=== PATIENT | male | born 1970 | race Caucasian/White ===

== ENCOUNTER 2017-09-20 14:00 | Outpatient (RCR) | payer OTHER, MEDICAID, SELFPAY | END 2017-10-10 23:59 | LOC: NS 14:00 | PROVIDERS: Family Provider Internal Medicine; PCP Internal Medicine; Visit Provider Nurse Practitioner Family | DX: E66.9 Obesity, unspecified (principal); Z68.32 Body mass index [BMI] 32.0-32.9, adult; Z71.3 Dietary counseling and surveillance | CPT/HCPCS: 97803 ==

== ENCOUNTER → 2017-10-22 12:32 | Outpatient (CLI) | payer OTHER, MEDICAID, SELFPAY ==
[2017-10-22 13:04] VITALS: PULSE 101; PULSE 93; PULSE 94; PULSE 95; PULSE 96; PULSE 98; O2SAT 94; O2SAT 95; O2SAT 97
--- NOTE | 2017-10-23 07:30 | WT_ITS ---
PSN 6 Minute Walk Test - 6 Minute Walk Test 6 Minute Walk Test: 6 Minute Walk Test PSN:6-Minute Walk Test Start: 10/22/17 13: 04 Freq: Status: Active Protocol: [id number] Document 10/22/17 13:04 NESSA (Rec: 10/22/17 13:06 NESSA [id number]) 6 Minute Walk Test Date Performed 10/22/17 Time Performed 12:30 Height 5 ft 9 in Weight: 237 lb Weight in Pounds 237.[address]: Vero Loyd Assistive device used: None Pre-test Oxygen Delivery Method Room Air Pulse Ox (%) 95 Pulse Rate (60-100 beats/min) 101 H Dyspnea Aravind Scale (0-10) 1 Exertion Aravind Scale (6-20) 6 1st minute Oxygen Delivery Method Room Air Pulse Ox (%) 94 Pulse Rate (60-100 beats/min) 96 2nd minute Oxygen Delivery Method Room Air Pulse Ox (%) 95 Pulse Rate (60-100 beats/min) 98 3rd minute Oxygen Delivery Method Room Air Pulse Ox (%) 94 Pulse Rate (60-100 beats/min) 93 4th minute Oxygen Delivery Method Room Air Pulse Ox (%) 94 Pulse Rate (60-100 beats/min) 96 5th minute Oxygen Delivery Method Room Air Pulse Ox (%) 94 Pulse Rate (60-100 beats/min) 96 6th minute Oxygen Delivery Method Room Air Pulse Ox (%) 94 Pulse Rate (60-100 beats/min) 94 Dyspnea Aravind Scale (0-10) 3 Exertion Aravind Scale (6-20) 12 Post-test Oxygen Delivery Method Room Air Pulse Ox (%) 97 Pulse Rate (60-100 beats/min) 95 Full Laps Walked 16 Partial Lap, Number of Tiles Walked 20 Total Distance Walked (ft) 964 - Interpretation Interpretation: The patient ambulated 964 feet over the course of 6 minutes beginning on room air without assistive devices or breaks. Pretesting oxygen saturation was noted to be 95% on room air. With ambulation, the noelle oxygen saturation was 94%. There was no significant exertional oxygen desaturation. - Recommendations Recommendations: There is no indication for the use of supplemental oxygen at this time.
== END ==
PROVIDERS: Family Provider Internal Medicine; PCP Internal Medicine; Visit Provider Nurse Practitioner Acute Care
DX: R06.02 Shortness of breath (principal); G47.33 Obstructive sleep apnea (adult) (pediatric)
CPT/HCPCS: 94618

== ENCOUNTER 2017-10-24 16:21 | Outpatient (RCR) | payer OTHER, MEDICAID, SELFPAY ==
[2017-10-10 14:16] VITALS: BP 112/82; BMI 34.4
== END 2017-11-07 23:59 ==
LOC: NS 16:21
PROVIDERS: Family Provider Internal Medicine; PCP Internal Medicine; Visit Provider Nurse Practitioner Family
DX: E66.9 Obesity, unspecified (principal); Z68.32 Body mass index [BMI] 32.0-32.9, adult; Z71.3 Dietary counseling and surveillance
CPT/HCPCS: 97803

== ENCOUNTER → 2017-10-30 20:00 | Outpatient (CLI) | payer OTHER, MEDICAID, SELFPAY | PROVIDERS: Family Provider Internal Medicine; PCP Internal Medicine; Visit Provider Nurse Practitioner Acute Care | DX: G47.33 Obstructive sleep apnea (adult) (pediatric) (principal) | CPT/HCPCS: 95811 ==

== ENCOUNTER → 2017-11-09 08:07 | Outpatient (CLI) | payer OTHER, MEDICAID, SELFPAY ==
[2017-11-09 08:47] LABS: Absolute Lymphocyte Count 2.55 X10^3/ul (0.83-4.51); Absolute Neutrophil Count 2.1 X10^3/uL (2.0-7.7); Basophil# 0.05 X10^3/uL; Basophil% 0.9 % (0-1); Eosinophil# 0.19 X10^3/uL; Eosinophils% 3.5 % (0-5); Hematocrit 46.9 % (40-54); Hemoglobin 15.7 g/dl (13.0-16.5); Lymphocyte # 2.55 X10^3/ul (4.0); Lymphocyte % 46.9 % (19-41); Mean Corp Hgb Conc 33.5 g/gl (32-36); Mean Corpuscular Hgb 28.8 pg (27.0-32.0); Mean Corpuscular Volume 86.1 fL (80-94); Mean Platelet Vol. 10.2 fl (6.2-12.0); Monocyte% 9.2 % (0-10); Neutrophil # 2.14 X10^3/uL (2.7-7.7); Neutrophil % 39.3 % (47-70); Platelet Count 182 K/mm3 (150-450); RBC Distribution Width CV 13.8 % (11.6-14.6); RBC Distribution Width SD 42.7 fl (35.1-43.9); Red Blood Count 5.45 M/mm3 (4.6-6.2); White Blood Count 5.4 K/mm3 (4.4-11.0)
[2017-11-09 08:50] LABS: POSITIVE COUNT NO; POSITIVE DIFFERENTIAL NO; POSITIVE MORPHOLOGY NO
[2017-11-09 09:12] LABS: International Normalized Ratio 0.9; Prothrombin Time (Protime)PT. 12.5 SECONDS (11.7-14.9)
[2017-11-09 09:28] LABS: AST(SGOT) 21 U/L (15-37); Alanine Aminotransfer ALT/SGPT 30 U/L (16-61); Albumin, Serum 3.7 g/dL (3.2-5.0); Alkaline Phosphatase 83 U/L (45-117); Anion Gap 8 (5-15); BUN 13 mg/dL (7-18); BUN/Creat Ratio 12.3 RATIO (10-20); Bilirubin, Direct 0.08 mg/dL (0.00-0.30); Calcium,Total 8.5 mg/dL (8.5-10.1); Chloride 110 mmol/L (98-107); Cholesterol 152 mg/dL (200); Creatinine, Serum 1.06 mg/dL (0.70-1.30); EST Glomerular Filtration Rate 79 mL/min (>60); Est Glom Filt Rate - Afr Amer 96 mL/min (>60); Ferritin 31 ng/mL (26-388); GGTP 29 U/L (15-85); Globulin 3.9 g/dL (2.2-4.2); Glucose 110 mg/dL (74-106); High Density Lipoprotein 44 mg/dL; Iron 61 ug/dL (65-175); Iron Binding Capacity,Total 450 ug/dL (250-450); Potassium 4.3 mmol/L (3.5-5.1); Protein, Total 7.6 g/dL (6.4-8.2); Sodium Level 142 mmol/L (136-145); T4 Total, Thyroxin 9.9 ug/dL (4.5-12.1); Thyroid Stim Hormone (TSH) 1.69 uIU/mL (0.358-3.74); Triglycerides 126 mg/dL; Very Low Density Lipoprotein 25 mg/dL (5-40)
[2017-11-09 09:50] LABS: Vitamin B12 301 pg/mL (211-911)
[2017-11-12 14:20] LABS: ANTINUCLEAR ANTIBODIES DIRECT Positive (Negative); Anti-Mitochondrial AB <20.0 Units (0.0-20.0)
[2017-11-13 16:09] LABS: HEPATITIS B SURFACE AG Negative (Negative); Hepatitis A AB, Total Negative (Negative); Hepatitis B Core Ab Total Negative (Negative); Immunoglobulin A 130 mg/dL (90-386); PROEL- Albumin 3.6 g/dL (2.9-4.4); PROEL- Alpha-1 Globulin 0.3 g/dL (0.0-0.4); PROEL- Alpha-2 Globulin 0.8 g/dL (0.4-1.0); PROEL- Beta Globulin 1.1 g/dL (0.7-1.3); PROEL- Gamma Globulin 1.4 g/dL (0.4-1.8); PROEL- Globulin, Total 3.6 g/dL (2.2-3.9); PROEL- TOTAL PROTEIN 7.2 g/dL (6.0-8.5)
[2017-11-13 16:10] LABS: Ceruloplasmin 27.4 mg/dL (16.0-31.0); HCV Quant. RNA PCR 30 IU/mL (.)
[2017-11-13 16:48] LABS: AFP, Tumor Marker 4.2 ng/mL (0.0-8.3); Anti-Smooth Muscle ABS 29 Units (0-19); HCV log 10 1.477 (.); Hep B Surface Antibodies Non Reactive (.)
== END ==
PROVIDERS: Family Provider Internal Medicine; PCP Internal Medicine
DX: B18.2 Chronic viral hepatitis C (principal)
CPT/HCPCS: 36415; 80048; 80061; 80076; 82105; 82390; 82607; 82728; 82784; 82977; 83516; 83540; 83550; 84165; 84436; 84443; 84590; 85025; 85610; 85730; 86038; 86704; 86706; 86708; 87340; 87522; 87902

== ENCOUNTER → 2017-11-14 06:39 | Outpatient (CLI) | payer OTHER, MEDICAID, SELFPAY ==
--- NOTE | 2017-11-14 18:30 | STRESSREP ---
Stress Test Report Exercise myocardial perfusion stress test. 47-year-old man with a history of known coronary artery disease. Stress protocol: Resting EKG demonstrates normal sinus rhythm with a rate of 71 bpm normal intervals are noted. The patient exercised according to the regular Derek protocol duration of 7 minutes. The maximum heart rate attained was 148 bpm which was 86% of the maximum predicted heart rate. The maximum workload attained was 8.5 metabolic equivalents. At rest there were no ST or T-wave changes noted suggest ischemia. At peak exercise upsloping ST changes only were noted we did not meet the criteria for ischemia. Occasional premature ventricular complexes were noted. There was small inferior Q waves noted suggestive of a previous inferior infarct. Blood pressure is 140/100 with a peak blood pressure 180/78 mmHg. Myocardial perfusion protocol. 14.4 mCi of technetium 99m sestamibi was injected at rest. The patient exercised according to the Derek protocol for total duration of 7 minutes and at peak exercise 44.6 mCi of technetium 99m sestamibi was injected. Stress images were obtained. Stress and rest images were reconstructed and compared in the short axis vertical long and horizontal long axis. Gated images were also obtained. Perfusion SPECT analysis. Review of the stress images demonstrate normal cardiac perfusion noted in the septum as well as the mid anterior wall. There is a medium-sized defect noted in the inferior apical wall and the distal anterior wall. There is mildly reduced perfusion noted in the basal inferior wall. On the resting images there is near complete reversibility noted of the basal and mid inferior wall and mild improvement in the inferior apical and distal anterior apical wall. The above is suggestive of ischemia in the above noted territories. Gated SPECT analysis. The gated ejection fraction is noted to be 52%. Conclusion: Abnormal exercise myocardial perfusion stress test at a moderate workload. Mild to moderate basal to mid inferior ischemia. Mild inferior apical ischemia noted.
[2017-11-18 08:29] LABS: Vitamin A, Retinol 51 ug/dL (24-85)
== END ==
PROVIDERS: Family Provider Internal Medicine; PCP Internal Medicine; Visit Provider Internal Medicine Cardiovascular Disease
DX: I25.10 Atherosclerotic heart disease of native coronary artery without angina pectoris (principal); R07.9 Chest pain, unspecified; B18.2 Chronic viral hepatitis C; I25.2 Old myocardial infarction
CPT/HCPCS: 78452; 84590; 93017; A9500; A4216

== ENCOUNTER 2017-11-14 12:47 | Outpatient (RCR) | payer OTHER, MEDICAID, SELFPAY | END 2017-11-14 12:48 | LOC: NS 12:47 | PROVIDERS: Family Provider Internal Medicine; PCP Internal Medicine; Visit Provider Nurse Practitioner Family | DX: E66.9 Obesity, unspecified (principal); Z68.32 Body mass index [BMI] 32.0-32.9, adult; Z71.3 Dietary counseling and surveillance | CPT/HCPCS: 97803 ==

== ENCOUNTER → 2017-11-16 13:20 | Outpatient (CLI) | payer OTHER, MEDICAID, SELFPAY ==
--- NOTE | 2017-11-16 14:34 | PFTCOMP ---
COMPLETE PULMONARY FUNCTION TEST INTERPRETATION Brief HPI: Patient is a 47 year old male, currently under the care of Vero Loyd, who presents to [facility] for complete pulmonary function tests secondary to diagnosis of JEAN PIERRE. Respiratory therapist reports good effort and reproducible results. Interpretation: Forced expiration spirometry shows no large airways obstructive ventilatory defect with an FEV1 of 104 % predicted. There is no significant bronchodilator response by ATS criteria. Spirograms are of good quality and plateau normally. The respiratory flow volume loop shows a normal pattern. Lung volumes by body plethysmography show a total lung capacity at the lower limit of normal at 5.63 L, 85 % predicted. All other lung volumes are within normal limits. Diffusion capacity by carbon monoxide is normal at 96 % predicted. The airway resistance is normal. No previous pulmonary function tests were available for review. Impression: These pulmonary function tests are within normal limits. Lung volumes are at the lower limit of normal, likely secondary to body habitus.
== END ==
PROVIDERS: Family Provider Internal Medicine; PCP Internal Medicine; Visit Provider Nurse Practitioner Acute Care
DX: G47.33 Obstructive sleep apnea (adult) (pediatric) (principal); R06.02 Shortness of breath
CPT/HCPCS: 94060; 94726; 94729

== ENCOUNTER → 2017-11-21 11:14 | Outpatient (CLI) | payer OTHER, MEDICAID, SELFPAY ==
--- NOTE | 2017-11-21 11:15 | RAD_ITS ---
STUDY: X-RAY CHEST REASON FOR EXAM: Male, 47 years old. Dyspnea TECHNIQUE: Frontal and lateral views of the chest. COMPARISON: 05/22/2016 FINDINGS: The lungs are clear and expanded. There is no demonstrated pleural abnormality. Normal size heart. Normal mediastinum and melisa. Normal visualized pulmonary arteries. Normal visualized aortic arch and descending thoracic aorta. There are diffuse degenerative changes of the visualized thoracic spine. Normal visualized ribs, clavicles, and shoulders. Abdominal clips. RAD/Chest PA and Lateral IMPRESSION: No acute pulmonary findings. Electronically Signed: Ernie Khanna MD at 8:46 EDT Tel , Service support ,
== END ==
PROVIDERS: Family Provider Internal Medicine; PCP Internal Medicine; Visit Provider Internal Medicine Cardiovascular Disease
DX: R06.02 Shortness of breath (principal); R06.00 Dyspnea, unspecified; R94.39 Abnormal result of other cardiovascular function study
CPT/HCPCS: 71046

== ENCOUNTER → 2017-12-03 09:05 | Day surgery (SDC) | payer OTHER, MEDICAID, SELFPAY ==
[2017-11-30 14:26] VITALS: BMI 34.8
--- NOTE | 2017-12-03 11:08 | CL.D_ITS ---
Patient Name: LISSETH KEMP Study Date: 12/03/2017 Performing: Juan Luis Mcdonough MD Ht: 69 inches 175 cm : 1970 Wt: 236.2 lbs 107 kg Age: 47 Gender: male BSA: 2.21 PROCEDURE(S) PERFORMED [id number]/COR/LV CLINICAL PROFILE AND INDICATIONS INDICATIONS: 44-year-old man with a history of cardiomyopathy and previous LAD stent and abnormal stress test. Stress/Imaging Standard Exercise Stress Test: Yes Result: Positive Low Risk CAD Presentations: No Sxs, no angina. CONCLUSIONS No significant CAD RECOMMENDATIONS Medical therapy DESCRIPTION OF PROCEDURE The patient arrived to the procedure lab. The risks and benefits of the procedure as well as a full d escription of our services here and current unavailability of surgical backup were fully explained to the patient and/or their significant other prior to the catheterization. The Timeout was completed, verifying the correct patient and procedure. The patient's procedural site was prepped and draped in the usual fashion. Local anesthetic was given subcutaneously to right radial region with Lidocaine 2% . Using a modified Seldinger technique, arterial access was obtained via the right radial artery, a 6 Fr sheath was inserted. Left Coronary Artery selective angiography was performed in multiple views u sing a 5 Fr. 4.0 Sargent catheter. Right Coronary Artery selective angiography was then performed in mu ltiple views using a 5 Fr. 4.0 Sargent catheter. Left Ventriculography was performed in SCHAEFER projection using a 5 Fr. Pigtail catheter. LV to AO pullback pressures were then recorded.The arterial sheath wa s pulled and a TR Band was applied for hemostasis CORONARY ANGIOGRAPHY DOMINANCE: Right Dominant LEFT HEART ASSESSMENT Left Ventricular Ejection Fraction: by Echo 50 % Depressed Left Ventricular systolic function LEFT MAIN: Angiographically normal LEFT ANTERIOR DECENDING ARTERY: Previously placed stent is patent CIRCUMFLEX ARTERY: Angiographically normal RIGHT CORONARY ARTERY: Angiographically normal COMPLICATIONS No Complications PROCEDURE MEDICATIONS Fentanyl 50 mcg IV Versed 1 mg IV Versed 1 mg IV Oxygen: 2 L/min via nasal cannula Baby Aspirin (81mg) 1 Tabs PO @ 12/03/2017 09:25:36 Heparin diluted in 23cc Heparinized saline. Patient given 10cc IA of this solution. 12/03/2017 10:44: 01 Plavix 75 mg PO 12/03/2017 09:25:40 Verapamil 2.5mg, Ntg 100mcgs, 2000 units of Heparin diluted in 23cc Heparinized saline. Patient give n 10cc IA of this solution. 12/03/2017 10:44:01 SUMMARY OF HEMODYNAMIC DATA Time AIR REST ECG 09:45:18 AO 98/69 (81) SA 10:47:41 LV 108/-3, 1 10:53:25 LV 110/0, 3 10:53:33 LV 115/-6, 5 10:54:20 LVp 114/-7, 2 10:54:24 AOp 122/74 (94) 10:54:29 Signed By Juan Luis Mcdonough MD On 12/03/2017 11:08:02 Juan Luis Mcdonough MD
== END ==
PROVIDERS: Family Provider Internal Medicine; PCP Internal Medicine; Visit Provider Internal Medicine Cardiovascular Disease
DX: R94.39 Abnormal result of other cardiovascular function study (principal); Z95.5 Presence of coronary angioplasty implant and graft; I25.10 Atherosclerotic heart disease of native coronary artery without angina pectoris; F41.9 Anxiety disorder, unspecified; F32.9 Major depressive disorder, single episode, unspecified; Z79.899 Other long term (current) drug therapy; Z79.82 Long term (current) use of aspirin; G47.33 Obstructive sleep apnea (adult) (pediatric); I25.2 Old myocardial infarction; F15.10 Other stimulant abuse, uncomplicated; F11.10 Opioid abuse, uncomplicated; B18.2 Chronic viral hepatitis C; Z82.49 Family history of ischemic heart disease and other diseases of the circulatory system; Z87.891 Personal history of nicotine dependence; E78.00 Pure hypercholesterolemia, unspecified; I10 Essential (primary) hypertension
CPT/HCPCS: 93458; 99152; 99153; J3010; J7040; Q9967; C1769; C1894

== ENCOUNTER 2018-04-06 18:21 | Emergency (ER) | payer OTHER, MEDICAID, SELFPAY ==
[2018-04-06] VITALS (8 sets, daily range): BP systolic 118–167; BP diastolic 79–100; PULSE 88–126; RESP 15–18; TEMP 36.6; O2SAT 94–97; BMI 33.9
[2018-04-06] MEDS: MethylPREDNISolone 125 MG/2 ML Vial IV (18:35)
--- NOTE | 2018-04-06 18:39 | ED.RN ---
PT REPORTS THROAT FEELS BETTER AFTER SOLUMEDROL AND EPI PEN
[2018-04-06] MEDS: DiphenhydrAMINE 50 MG/ML Syringe 25 MG IV (18:52)
--- NOTE | 2018-04-06 22:15 | ED.VISSUMM ---
- ER Visit Summary Date of Service: 04/06/18 Chief Complaint: Bee sting History of Present Illness: The patient is a 48 M who states that he was stung multiple times by some Hymenoptera. He states that 12 years ago he had a severe anaphylactic reaction. He states that he is having difficulty breathing and swallowing. He states he is diffusely itching and is having hives. Physical Examination: Afebrile patient does show tachycardia Patient does have some mild oral pharyngeal swelling. He is tachycardic. He has a slight wheeze. He has diffuse hives on his body. Emergency Department Course and Treatment: Patient was given epinephrine Solu-Medrol and Pepcid and Benadryl. The patient was observed for 4 hours. He continues to do well. Going to give him an oral dose of prednisone here. He will continue Benadryl at home. Return if worsening or concerns Impression: 1. Acute anaphylactic reaction to hymenoptera envenomation This note was generated with [employer] dictation software. It may contain incorrect words, spelling, and punctuation that were not noted in review of the chart prior to signing ED Disposition - Plan for ED Patient: Disposition: Home or Assisted Living Chief Complaint: Allergic Reaction Instructions: ED Bite Sting Insect Gen Allergic React Prescriptions: Epinephrine [Epipen] 0.3 mg IJ PRN PRN #1 auto.injct PRN Reason: Anaphylaxis Prednisone [Deltasone] 60 mg PO DAILY #9 tab Referrals: Kane Galan MD [Primary Care Provider] - As Needed Additional Instructions: I would recommend Pepcid 20 mg twice a day for the next 3 days I would recommend Benadryl 25 mg every 8 hours for the next 3 days Return if worsening or concerns I provided you a prescription for an EpiPen which I would recommend. Please discussed with the pharmacist cost as well as potential options.
--- NOTE | 2018-04-06 22:20 | ED.DCSUM_ITS ---
- ER Visit Summary Date of Service: 04/06/18 Chief Complaint: Bee sting History of Present Illness: The patient is a 48 M who states that he was stung multiple times by some Hymenoptera. He states that 12 years ago he had a severe anaphylactic reaction. He states that he is having difficulty breathing and swallowing. He states he is diffusely itching and is having hives. Physical Examination: Afebrile patient does show tachycardia Patient does have some mild oral pharyngeal swelling. He is tachycardic. He has a slight wheeze. He has diffuse hives on his body. Emergency Department Course and Treatment: Patient was given epinephrine Solu- Medrol and Pepcid and Benadryl. The patient was observed for 4 hours. He continues to do well. Going to give him an oral dose of prednisone here. He will continue Benadryl at home. Return if worsening or concerns Impression: 1. Acute anaphylactic reaction to hymenoptera envenomation This note was generated with [employer] dictation software. It may contain incorrect words, spelling, and punctuation that were not noted in review of the chart prior to signing ED Disposition - Plan for ED Patient: Disposition: Home or Assisted Living Chief Complaint: Allergic Reaction Instructions: ED Bite Sting Insect Gen Allergic React Prescriptions: Epinephrine [Epipen] 0.3 mg IJ PRN PRN #1 auto.injct PRN Reason: Anaphylaxis Prednisone [Deltasone] 60 mg PO DAILY #9 tab Referrals: Kane Galan MD [Primary Care Provider] - As Needed Additional Instructions: I would recommend Pepcid 20 mg twice a day for the next 3 days I would recommend Benadryl 25 mg every 8 hours for the next 3 days Return if worsening or concerns I provided you a prescription for an EpiPen which I would recommend. Please discussed with the pharmacist cost as well as potential options.
[2018-04-06] MEDS: predniSONE 20 MG Tablet 60 MG PO (22:31)
== END 2018-04-06 22:33 | disposition home or self-care (01) ==
PROVIDERS: Emergency Provider Emergency Medicine; Family Provider Internal Medicine; PCP Internal Medicine
DX: T63.91XA Toxic effect of contact with unspecified venomous animal, accidental (unintentional), initial encounter (principal); T78.2XXA Anaphylactic shock, unspecified, initial encounter; I25.10 Atherosclerotic heart disease of native coronary artery without angina pectoris; Z72.0 Tobacco use; I25.2 Old myocardial infarction; Z86.19 Personal history of other infectious and parasitic diseases
CPT/HCPCS: 96361; 96372; 96374; 96375; 99285; A4216; J3490

== ENCOUNTER → 2018-04-08 15:41 | Outpatient (CLI) | payer OTHER, MEDICAID, SELFPAY ==
--- NOTE | 2018-04-08 16:26 | RAD_ITS ---
STUDY: X-RAY - RIGHT KNEE REASON FOR EXAM: Male, 48 years old. Bilateral knee pain. TECHNIQUE: 3 view(s) of the knee. COMPARISON: None. FINDINGS: Normal visualized distal femur. Normal visualized proximal tibia and fibula. Normal proximal tibiofibular articulation. There is no acute fracture, dislocation or destructive osseous pathology. There is mild degenerative arthrosis of the medial femorotibial compartment. Normal lateral femorotibial compartment. There is mild degenerative arthrosis of the patellofemoral articulation. There is no demonstrated joint effusion. The soft tissue structures are unremarkable. RAD/Knee 3 Views IMPRESSION: Degenerative arthrosis. Electronically Signed: Gray Huitron DO at 22:10 EDT Tel [phone], Service support ,
[2018-04-08 17:38] LABS: Erythrocyte Sedimentation Rate 9 mm/hr (0-15)
[2018-04-08 17:42] LABS: Amphetamine Urine VISTA NEGATIVE (<1000 ng/mL); Barbiturate Urine VISTA NEGATIVE (< 200 ng/mL); Benzodiazepine Urine VISTA POSITIVE (< 200 ng/mL); Cocaine Urine VISTA NEGATIVE (< 300 ng/mL); Ecstacy Urine VISTA NEGATIVE (< 500 ng/mL); Methadone Urine VISTA NEGATIVE (< 300 ng/mL); PCP Urine VISTA NEGATIVE (< 25 ng/mL); THC Urine VISTA NEGATIVE (< 50 ng/mL); Vista UDS pH Range 5
[2018-04-08 18:25] LABS: HIV - WCH Non-Reactive (Nonreactive); Vitamin B12 491 pg/mL (211-911)
--- NOTE | 2018-04-08 18:25 | RAD_ITS ---
STUDY: X-RAY - LEFT KNEE REASON FOR EXAM: Male, 48 years old. Bilateral knee pain. TECHNIQUE: 3 view(s) of the knee. COMPARISON: None. FINDINGS: Normal visualized distal femur. Normal visualized proximal tibia and fibula. Normal proximal tibiofibular articulation. There is no acute fracture, dislocation or destructive osseous pathology. There is mild degenerative arthrosis of the medial femorotibial compartment. There is mild degenerative arthrosis of the lateral femorotibial compartment. There is mild degenerative arthrosis of the patellofemoral articulation. There is no demonstrated joint effusion. The soft tissue structures are unremarkable. RAD/Knee 3 Views IMPRESSION: Degenerative arthrosis. Electronically Signed: Gray Huitron DO at 22:11 EDT Tel [phone], Service support ,
[2018-04-08 18:27] LABS: Free T3 2.9 pg/mL (2.18-3.98); Iron 86 ug/dL (65-175); Iron Binding Capacity,Total 444 ug/dL (250-450); PERCENT IRON SATURATION 19.4 % (15.0-55.0); Rheumatoid Factor < 10.0 IU/mL (<15); T3 Uptake 34 % (33-40); T7 / Free Thyroxin Index 4.1 (1.4-4.5); Thyroid Stim Hormone (TSH) 0.18 uIU/mL (0.358-3.74)
[2018-04-10 12:09] LABS: RNP Ab <0.2 AI (0.0-0.9); Smith Ab <0.2 AI (0.0-0.9)
[2018-04-11 17:02] LABS: ANTINUCLEAR ANTIBODIES DIRECT Positive (Negative)
[2018-04-11 20:08] LABS: Immunoglobulin A 126 mg/dL (90-386); Immunoglobulin G 1106 mg/dL (700-1600); Immunoglobulin M 112 mg/dL (20-172); PROEL- A/G Ratio 1.3 (0.7-1.7); PROEL- Albumin 4.2 g/dL (2.9-4.4); PROEL- Alpha-1 Globulin 0.3 g/dL (0.0-0.4); PROEL- Alpha-2 Globulin 0.7 g/dL (0.4-1.0); PROEL- Gamma Globulin 1.2 g/dL (0.4-1.8); PROEL- Globulin, Total 3.2 g/dL (2.2-3.9); PROEL- TOTAL PROTEIN 7.4 g/dL (6.0-8.5)
[2018-04-12 11:48] LABS: Hep C Antibodies >11.0 s/co ratio (0.0-0.9)
[2018-04-12 11:49] LABS: ARSENIC (TOTAL), URINE 13 ug/L (0-50); Creatinine, Urine 1.89 g/L (0.30-3.00)
== END ==
PROVIDERS: Nurse Practitioner Family; Psychiatry & Neurology Neurology; Family Provider Internal Medicine; PCP Internal Medicine; Visit Provider Anesthesiology Pain Medicine
DX: G25.81 Restless legs syndrome (principal); G62.9 Polyneuropathy, unspecified; R53.83 Other fatigue; M25.562 Pain in left knee; M25.561 Pain in right knee; G89.29 Other chronic pain; Z79.899 Other long term (current) drug therapy
CPT/HCPCS: 36415; 73562; 80307; 82175; 82570; 82607; 82746; 82784; 83540; 83550; 83655; 83825; 84165; 84436; 84443; 84479; 84481; 85652; 86038; 86235; 86334; 86431; 86703; 86803

== ENCOUNTER → 2018-05-24 12:25 | Outpatient (CLI) | payer OTHER, MEDICAID, SELFPAY ==
--- NOTE | 2018-05-24 12:33 | MRI_ITS ---
STUDY: MRI LEFT KNEE REASON FOR EXAM: Left lateral knee pain. TECHNIQUE: Standardized fat and water weighted pulse sequences were obtained in all 3 orthogonal planes. COMPARISON: Radiographs 03/09/2018 and MRI report 06/21/2005. FINDINGS: There is attrition of the body of the medial meniscus, either secondary to partial meniscectomy or free edge tear/degeneration. There is a horizontal tear of the inferior articular surface of the posterior horn of the medial meniscus (proton-density sagittal images 9-13). There is mild arthrosis of the medial femorotibial compartment with small marginal osteophytes, mild chondral thinning (T2 sagittal image 7) and mild subchondral cystic change of the medial tibial plateau. Normal medial collateral ligamentous complex (MCL). Normal distal semimembranosus, gracilis and semitendinosus tendons. There is a horizontal tear of the free margin/inferior articular surface of the posterior horn of the lateral meniscus tracking fluid (T2 sagittal images 19-21) and a complex tear of the posterior body of the lateral meniscus (T2 coronal images 16, 17). There is arthrosis of the lateral femorotibial compartment with marginal osteophytes, chondral loss (T2 sagittal image 20) and very mild subchondral bone edema of the lateral femoral condyle. Normal proximal tibiofibular articulation. Normal lateral collateral (fibular) ligament. Normal popliteus tendon. Normal biceps femoris tendon. There is mild intrasubstance mucoid degeneration of the anterior cruciate ligament (series 7 image 11). Normal posterior cruciate ligament (PCL). Normal congruent patellofemoral articulation. Normal hyaline cartilage of the patellofemoral compartment. Normal medial and lateral patellar retinaculum. Normal visualized quadriceps tendon. Normal patellar tendon. Normal Hoffa's fat pad. There is a small joint effusion. There is elongated popliteal cyst (T2 sagittal images 3-6) with mild extravasation of fluid and containing an intra-articular body (T2 coronal images 4, 5). The otherwise visualized osseous structures are unremarkable. MRI/Lower Ext Joint Only (Routine) IMPRESSION: Lateral meniscal tear. Medial meniscal tear and partial medial meniscectomy or tear/degeneration. Arthrosis of the medial and lateral femorotibial compartments. Small joint effusion. Popliteal cyst with mild extravasation of fluid and containing an intra-articular body. Electronically Signed: Barrera Scott MD at 14:37 EDT Tel , Service support ,
== END ==
PROVIDERS: Visit Provider Psychiatry & Neurology Neurology
DX: M25.562 Pain in left knee (principal); S84.1 Injury of peroneal nerve at lower leg level; X58.XXXS Exposure to other specified factors, sequela
CPT/HCPCS: 73721

== ENCOUNTER → 2018-08-16 13:18 | Outpatient (CLI) | payer OTHER, MEDICAID, SELFPAY | PROVIDERS: Family Provider Family Medicine; PCP Family Medicine; Referring Provider Orthopaedic Surgery; Visit Provider Orthopaedic Surgery | DX: Z01.818 Encounter for other preprocedural examination (principal); Z53.9 Procedure and treatment not carried out, unspecified reason ==

== ENCOUNTER → 2019-09-16 13:08 | Outpatient (CLI) | payer MEDICARE, SELFPAY ==
[2019-09-16 13:01] VITALS: BMI 37.3
--- NOTE | 2019-09-16 13:08 | RAD_ITS ---
STUDY: X-RAY - LEFT KNEE REASON FOR EXAM: Torn meniscus. TECHNIQUE: 4 view(s) of the knee. COMPARISON: Radiographs 04/08/2018. FINDINGS: Normal visualized distal femur. Normal visualized proximal tibia and fibula. Normal proximal tibiofibular articulation. There is mild joint space narrowing of the medial femorotibial compartment. There is moderate joint space narrowing of the lateral femorotibial compartment. Normal patellofemoral articulation. There is an intra-articular body in a popliteal cyst. RAD/Knee 4 or More Views IMPRESSION: Arthrosis of the medial and lateral femorotibial compartments, similar to the prior study. Intra-articular body in a popliteal cyst also present on the prior study. Electronically Signed: Barrera Scott MD at 15:13 EST Tel , Service support ,
== END ==
PROVIDERS: Family Provider Nurse Practitioner Family; PCP Nurse Practitioner Family; Referring Provider Orthopaedic Surgery; Visit Provider Orthopaedic Surgery
DX: M25.562 Pain in left knee (principal)
CPT/HCPCS: 73564

== ENCOUNTER → 2019-10-01 10:51 | Outpatient (CLI) | payer MEDICARE, SELFPAY ==
[2019-09-16 13:01] VITALS: BMI 37.3
--- NOTE | 2019-10-01 10:51 | MRI_ITS ---
STUDY: MRI LEFT KNEE REASON FOR EXAM: Knee pain, lateral greater than medial, injury one year ago, surgery in 2007. TECHNIQUE: Standardized fat and water weighted pulse sequences were obtained in all 3 orthogonal planes. COMPARISON: Radiographs 09/16/2019 and MRI images 05/24/2018. FINDINGS: There is attrition of the body of the medial meniscus as on the prior study consistent with partial meniscectomy and a horizontal tear of the inferior articular surface of the posterior horn of the medial meniscus (proton density sagittal images 8-15) as on the prior study. There is mild arthrosis of the medial femorotibial compartment with mild chondral thinning of the medial femoral condyle (T2 sagittal image 7) and very mild subchondral cystic change of the medial tibial plateau. Normal medial collateral ligamentous complex (MCL). Normal distal semimembranosus, gracilis and semitendinosus tendons. There is a progression of complex tearing of the posterior horn of the lateral meniscus (proton density sagittal images 29-38) and increased tearing of the body of the lateral meniscus (T2 coronal images 15-17). There is arthrosis of the lateral femorotibial compartment with small marginal osteophytes, coronal loss of the posterior aspect of the compartment (T2 sagittal image 21) and mild subchondral bone edema of the posterior lateral femoral condyle. Normal proximal tibiofibular articulation. Normal lateral collateral (fibular) ligament. Normal popliteus tendon. Normal biceps femoris tendon. There is mild intrasubstance mucoid degeneration of the anterior cruciate ligament (T2 coronal images 14, 15). Normal posterior cruciate ligament (PCL). Normal congruent patellofemoral articulation. Normal hyaline cartilage of the patellofemoral compartment. Normal medial and lateral patellar retinaculum. Normal quadriceps tendon. There is mild distal patellar tendinosis (T2 sagittal images 15, 16). Normal Hoffa''s fat pad. There is a minimal volume of fluid in the knee joint. There is a small popliteal cyst with mild extravasation of fluid and containing an intra-articular body (T2 sagittal images 5, 6). The otherwise visualized osseous structures are unremarkable. MRI/Lower Ext Joint Only (Routine) IMPRESSION: Partial medial meniscectomy and medial meniscal tear similar to the prior study. Lateral meniscal tear, increased since the prior study. Arthrosis of the lateral and medial femorotibial compartments. Mild distal patellar tendinosis. Small popliteal cyst with mild extravasation of fluid and containing an intra-articular body. Electronically Signed: Barrera Scott MD at 12:42 EST Tel , Service support ,
== END ==
LOC: MRI 10:51
PROVIDERS: Family Provider Nurse Practitioner Family; PCP Nurse Practitioner Family; Referring Provider Orthopaedic Surgery; Visit Provider Orthopaedic Surgery
DX: M17.12 Unilateral primary osteoarthritis, left knee (principal); M25.562 Pain in left knee
CPT/HCPCS: 73721